=== PATIENT | male | born 1980 | race Caucasian/White ===

== ENCOUNTER 2016-05-29 10:19 | Emergency (ER) | payer BC ==
[2016-05-29 10:23] VITALS: RESP 16; TEMP 97.9; O2SAT 96
--- NOTE | 2016-05-29 10:29 | CPEKG ---
Heart Rate: 70 RR Interval: 857 P-R Interval: 164 QRSD Interval: 88 QT Interval: 376 QTC Interval: 406 P [place]: 21 QRS [place]: 51 T Wave [place]: 9 EKG Severity - NORMAL ECG - EKG Impression: SINUS RHYTHM Electronically Signed By: Aleta Reyes 29-May-2016 14:31:33
--- NOTE | 2016-05-29 10:49 | EDPHY ---
H & P Stated Complaint: CHEST DISCOMFORT VS ESOPHAGEAL SPASMS. TODAY RADIATED TO LUE Time Seen by Provider: 05/29/16 10:20 HPI/ROS: CHIEF COMPLAINT: Chest pain HISTORY OF PRESENT ILLNESS: The patient is a 35 y/o male arriving with his family complaining of a 2-minute episode of recurrent 10-15 seconds of chest pain radiating to his left shoulder and left arm this morning. He was diagnosed with esophageal spasms and possible GERD approximately 2 weeks ago after developing intermittent left chest cramping about 5 weeks ago. The pain has not woken him from sleep. He denies acidic taste in his mouth and has not noticed obvious associated symptoms after eating. He has a history of IBS with intermittent abdominal pain, but cannot identify a correlation with the presence of his chest pain. The chest pain feels like a cramp in his left upper chest, happens suddenly, and lasts a few seconds. The pain is not associated with exertion and he unsure if movement or breathing changes the pain. The onset is generally sudden and described specifically as a muscle cramp in his pectoralis muscle. He denies recent heavy lifting or trauma. His pain is not currently present. He is a smoker but otherwise denies cardiac risk factors including hypertension, diabetes, hypercholesteremia, or familial cardiac history. REVIEW OF SYSTEMS: Constitutional: No fever, no chills Eyes: No visual changes ENT: No sore throat Respiratory: No cough, no shortness of breath Cardiac: see HPI Gastrointestinal: see HPI Genitourinary: No hematuria, no dysuria Musculoskeletal: No leg pain or swelling Skin: No rash Neurological: No headache, no numbness, no weakness Psychiatric: No depression Source: Patient - Personal History Current Tetanus/Diphtheria Vaccine: Yes Current Tetanus Diphtheria and Acellular Pertussis (TDAP): Yes - Medical/Surgical History PMH: PMH includes: 1. Esophageal spams 2. Possible GERD 3. IBS Hx Asthma: No Hx Chronic Respiratory Disease: No Hx Diabetes: No Hx Cardiac Disease: No Hx Renal Disease: No Hx Cirrhosis: No Hx Alcoholism: No Hx HIV/AIDS: No Hx Splenectomy or Spleen Trauma: No Other PMH: PMH- GERD, SYNCOPE - Social History Smoking Status: Current some day smoker Additional Social History: Smoker - vapes. and at bedside. - Physical Exam Exam: General Appearance: Alert, no distress Eyes: Pupils equal and round, no conjunctival pallor or injection ENT, Mouth: Mucous membranes moist Neck: Normal inspection Respiratory: Lungs are clear to auscultation Cardiovascular: Regular rate and rhythm. No chest wall tenderness. Gastrointestinal: Abdomen is soft and non- tender Neurological: A&O, nonfocal, normal gait Skin: Warm and dry, no rash Extremities: Nontender, no pedal edema, normal ROM of left arm without eliciting pain. Psychiatric: Mood and affect normal Constitutional: Initial Vital Signs Temperature (C) 36.6 C 05/29/16 10:19 Heart Rate 68 05/29/16 10:19 Respiratory Rate 16 05/29/16 10:19 Blood Pressure 153/89 H 05/29/16 10:19 O2 Sat (%) 96 05/29/16 10:19 O2 Delivery Mode Room Air Allergies/Adverse Reactions: penicillin G Allergy (Verified 01/29/15 20:13) Penicillins Allergy (Verified 05/29/16 10:23) Home Medications: Medication Instructions Recorded PRILOSEC 05/29/16 Medical Decision Making - Diagnostics EKG Interpretation: The 12 lead EKG was interpreted by myself. Sinus rhythm rate 70. See hard copy and/or "tracemaster" electronic copy for interpretation. Imaging: Study: Chest x-ray Indication: pain Results: Chest x-ray was obtained. The results of the study are no acute disease. Radiologist report pending. I viewed the images myself on the PACS system. ED Course/Re-evaluation: This is a 35 y/o male with a recent diagnosis of esophageal spasms and possible GERD presenting to the ED at the recommendation of his PCP after a 2 minute episode of intermittent chest "cramping" that extended into his left arm this morning. He's had similar intermittent episodes for the last 5 weeks about once daily lasting about 10-15 seconds each time without any obvious aggravating factors. He describes the pain as a muscle spasm. His symptoms are not currently present and his exam is unremarkable. He is a smoker, but otherwise has no known risk factors. Plan for full cardiac work-up including EKG, chest x- ray, IV, and labs including troponin, d-dimer. EKG and chest x-ray are normal. Troponin and d-dimer are negative, other labs unremarkable. I discussed these results with the patient. He will be referred to cardiology for follow up. Return precautions given. He is comfortable with this plan. This patient presents with atypical and very brief chest pain. After careful consideration and evaluation, I find no evidence of acute coronary syndrome. The patient has 1 risk factor for coronary disease (smoking), normal EKG and normal studies. In addition, I feel that I can safely exclude pulmonary embolism, with normal vital signs, normal oxygen saturation and normal studies. In addition there is no evidence of pneumothorax, pneumonia, aortic dissection. Differential Diagnosis: Differential diagnosis includes though it is not limited to pneumonia, pneumothorax, pulmonary embolism, aortic dissection, pericarditis, acute coronary syndrome. - Data Points Laboratory Results: Laboratory Results 05/29/16 12:10 05/29/16 10:35 05/29/16 05/29/16 05/29/16 12:10 11:07 10:35 WBC 4.86 10^3/uL REJ (3.80-9.50) RBC 4.94 10^6/uL Not Reported (4.40-6.38) Hgb 15.3 g/dL Not Reported (13.7-17.5) Hct 42.9 % Not Reported (40.0-51.0) MCV 86.8 fL Not Reported (81.5-99.8) MCH 31.0 pg Not Reported (27.9-34.1) MCHC 35.7 g/dL Not Reported (32.4-36.7) RDW 11.7 % Not Reported (11.5-15.2) Plt Count 169 10^3/uL Not Reported (150-400) MPV 9.5 fL Not Reported (8.7-11.7) Neut % (Auto) 49.6 % Not Reported (39.3-74.2) Lymph % (Auto) 42.0 % Not Reported (15.0-45.0) [place] % (Auto) 4.7 % Not Reported (4.5-13.0) Eos % (Auto) 3.1 % Not Reported (0.6-7.6) Baso % (Auto) 0.4 % Not Reported (0.3-1.7) Nucleat RBC Rel Count 0.0 % Not Reported (0.0-0.2) Absolute Neuts (auto) 2.41 10^3/uL Not Reported (1.70-6.50) Absolute Lymphs (auto) 2.04 10^3/uL Not Reported (1.00-3.00) Absolute Monos (auto) 0.23 L 10^3/uL Not Reported (0.30-0.80) Absolute Eos (auto) 0.15 10^3/uL Not Reported (0.03-0.40) Absolute Basos (auto) 0.02 10^3/uL Not Reported (0.02-0.10) Absolute Nucleated RBC 0.00 10^3/uL Not Reported (0-0.01) Immature Gran % 0.2 % Not Reported (0.0-1.1) Immature Gran # 0.01 10^3/uL Not Reported (0.00-0.10) D-Dimer < 0.27 ug/mLFEU (0.00-0.50) Sodium 143 mEq/L (134-144) Potassium 5.0 mEq/L (3.5-5.2) Chloride 105 mEq/L (97-110) Carbon Dioxide 29 mEq/l (22-31) Anion Gap 9 mEq/L (8-16) BUN 17 mg/dL (7-23) Creatinine 1.0 mg/dL (0.7-1.3) Estimated GFR > 60 Glucose 69 L mg/dL (70-100) Calcium 9.3 mg/dL (8.5-10.4) Troponin I 0.015 ng/mL (0-0.034) Departure - Departure Disposition: Home, Routine, Self-Care Clinical Impression: Atypical chest pain Condition: Good Instructions: Chest Pain (ED) Additional Instructions: 1. Follow up with Dr. Murillo, licensed embalmer, next week. 2. Return to the ED for worsening chest pain, shortness of breath, fainting, or other worsening of condition. Referrals: Masoud Mays MD [Primary Care Provider] - As per Instructions Sydni Murillo MD [Medical Doctor] - As per Instructions Report Scribed for: Aleta Reyes Report Scribed by: Yee Novak Date of Report: 05/29/16 Time of Report: 10:26 Physician Review and Approval Statement: 05/29/16 10:26 Portions of this note were transcribed by a medical physicist. I personally performed a history, physical exam, medical decision making, and confirmed accuracy of information the transcribed note.
[2016-05-29 11:10] LABS: ANION GAP 9 mEq/L (8-16); CALCIUM 9.3 mg/dL (8.5-10.4); CARBON DIOXIDE 29 mEq/l (22-31); CHLORIDE 105 mEq/L (97-110); GLOMERULAR FILTRATION RATE > 60; GLUCOSE 69 mg/dL (70-100); SODIUM 143 mEq/L (134-144)
[2016-05-29 11:22] LABS: TROPONIN I 0.015 ng/mL (0-0.034)
--- NOTE | 2016-05-29 11:26 | DX ---
PA and Lateral Chest X-ray 1046 hours History: Chest pain. Findings: Heart size and pulmonary vasculature are normal. The lungs are clear without infiltrates or effusions. There is no pneumothorax. The osseous structures are intact. Impression: Normal chest x-ray.
[2016-05-29 12:14] LABS: % IMMATURE GRANULYOCYTES 0.2 % (0.0-1.1); ABSOLUTE IMMATURE GRANULOCYTES 0.01 10^3/uL (0.00-0.10); ADD DIFF? NO; ADD MORPH? NO; ADD SCAN? NO; ATYPICAL LYMPHOCYTE FLAG 0 (0-99); FRAGMENT RBC FLAG 0 (0-99); HEMATOCRIT 42.9 % (40.0-51.0); HEMOGLOBIN 15.3 g/dL (13.7-17.5); LEFT SHIFT FLG 0 (0-99); LIPEMIA HEMOLYSIS FLAG 90 (0-99); MEAN CELL HEMOGLOBIN CONCENTR. 35.7 g/dL (32.4-36.7); MEAN CELL VOLUME 86.8 fL (81.5-99.8); MEAN PLATELET VOLUME 9.5 fL (8.7-11.7); PLATELET CLUMPS FLAG 20 (0-99); PLATELET COUNT 169 10^3/uL (150-400); RED BLOOD CELL COUNT 4.94 10^6/uL (4.40-6.38); RED CELL DISTRIBUTION WIDTH 11.7 % (11.5-15.2)
[2016-05-29 12:35] VITALS: BP 148/72; PULSE 78
== END 2016-05-29 12:35 | disposition home or self-care (01) ==
DX: R07.89 Other chest pain (principal); F17.290 Nicotine dependence, other tobacco product, uncomplicated